=== PATIENT | male | born 1970 | race African-American/Black ===

== ENCOUNTER 2020-12-05 17:52 | Emergency (ER) | payer MEDICAID ==
[~2020-12-05] VITALS: Ht 175.3 cm; Wt 84.0 kg
[2020-12-05 19:55] VITALS: BP 126/75
== END 2020-12-05 19:57 | disposition home or self-care (01) ==
LOC: ER 17:52
DX: M79.671 Pain in right foot (principal); Z98.890 Other specified postprocedural states
CPT/HCPCS: 73630; 99283